=== PATIENT | male | born 2000 | race Caucasian/White ===

== ENCOUNTER 2021-09-28 14:00 | Emergency (ER) | payer MEDICAID, SELFPAY ==
[2021-09-28 14:23] VITALS: BP 123/70; PULSE 82; RESP 18; TEMP 36.8; O2SAT 99; BMI 32.1
--- NOTE | 2021-09-28 15:02 | PC.NURSE ---
Pt in own pants d/t inability to fit [facility] pants. Pants checked by security and other belongings secured
--- NOTE | 2021-09-28 15:11 | ED_ITS ---
HPI - Psych General Chief Complaint: Psychiatric Symptoms Stated Complaint: CRISIS,L FOREARM LACS PER EMS Time Seen by Provider: 09/28/21 14:30 Source: patient and EMS Mode of arrival: EMS Limitations: no limitations History of Present Illness HPI Narrative: Patient comes to the emergency room via EMS on a Section 12 by Shanta ADAME. Earlier today, patient was found by his girlfriend trying to slash his wrist. P atient sustained two small superficial lacerations to the left wrist, and 1 superficial cut to the midline of the neck. Patient states that he is not on any medications for anxiety or depression, states that he has been cutting himself since he was in middle school. Patient denies homicidal ideation. Patient states that he has never been formally diagnosed with either anxiety or depression. Related Data Allergies Allergy/AdvReac Type Severity Reaction Status Date / Time No Known Allergies Allergy Verified 09/28/21 14:32 Review of Systems Review of Systems: Constitutional : No Weight loss, No Fever, No Chills, No Night Sweats, No Fatigue, No Malaise ENT/Mouth : No Hearing loss, No Ear Pain, No Nasal Congestion, No Sinus Pain, No Hoarseness, No sore throat, No Rhinorrhea, No Swallowing Difficulty Eyes: No Eye Pain, No Swelling, No Redness, No Foreign Body, No Discharge, No Vision Changes Cardiovascular : No Chest Pain, No SOB, No Dyspnea on Exertion, No Orthopnea, No Edema, No Palpitations Respiratory : No Cough, No Sputum, No Wheezing, No Smoke Exposure, No Dyspnea Gastrointestinal : No Nausea, No Vomiting, No Diarrhea, No Constipation, No abdominal Pain, No Hematochezia, No Melena Genitourinary : no irregular bleeding, No Dysuria, No Urinary Frequency, No Hematuria, No Urinary Incontinence, No Urgency, No Flank Pain, No Urinary Flow Changes, No Hesitancy Musculoskeletal : No joint pain, No Myalgias, No Joint Swelling Skin : Complaining of superficial ulcerations to the left wrist and neck Neuro : No Weakness, No Numbness, No Paresthesias, No Loss of Consciousness, No Dizziness, No Headache Psych : Complaining of anxiety, depression, suicidal ideation, no homicidal ideation, denies using drugs Heme/Lymph: No Bruising, No Bleeding,No Lymphadenopathy Endocrine : No Polyuria, No Polydipsia, No Temperature Intolerance [facility] Past Medical History Medical History (Updated 09/28/21 @ 15:23 by Le Ayala MD) No known health problems Suicidal ideation Social History Social History Alcohol intake: current Alcohol intake frequency: a few times a week Patient Tobacco Use Status: Never used Tobacco Use of substances other than those prescribed or required for medical reasons: Yes Substance Use Type: Marijuana Physical Exam Vital Signs: Vital Signs: Last Vital Signs Temp 98.2 F 09/28/21 14:23 Pulse 82 09/28/21 14:23 Resp 18 09/28/21 14:23 BP 123/70 09/28/21 14:23 Pulse Ox 99 09/28/21 14:23 O2 Del Method 09/28/21 14:23 BMI result Body Mass Index 32.1 Const: Other: Appearance: Alert. Oriented X3. No acute distress. Eyes: Pupils equal, round and reactive to light. ENT: Pharynx normal. Neck: Normal inspection. Neck supple. No lymph nodes noted. No crepitus CVS: Normal heart rate and rhythm. Pulses normal. Normal S1 and S2 Respiratory: No respiratory distress. Breath sounds normal. No Wheezing. No rales Abdomen: Soft and nontender. No rigidity. No distention. Skin: Skin warm and dry. Two superficial lacerations to the left wrist and 1 to the next Extremities: No lower extremity edema. No Lacerations. No Rash Neuro: Oriented X 3. No motor deficit. No sensory deficit. Moving all extremities. No slurred speech. CN 2 through 12 grossly intact Psych: calm, cooperative, normal affect Course Course Course Narrative: Patient does not need any stitches. Patient has superficial lacerations were cleaned and Dermabond was applied, neck scratch is minor, cleaned, no further treatment needed. Patient is on a Section 12 which was started by police department from [place]. [facility] consult pending Physician observation started at 15:20 Discharge Plan Discharge Clinical Impression: Suicidal ideation Patient Disposition: Still a Patient
--- NOTE | 2021-09-28 15:35 | MHC.CARE ---
Call from N Intake, patient was evaluated in the community and per clinician was sent to the ED for medical clearance and N to gather collateral information. Will be seen for a mental status update and disposition later tonight or in the morning.
[2021-09-28] MEDS: Diphth,Pertus(ACell),Tet Adult 0.5 ML SYRINGE IM (15:56)
[2021-09-28 16:14] LABS: COVID-19 Test Negative (Negative); IDNOW Serial# 16C4AD1C
[2021-09-28 16:21] LABS: Appearance Urine CLEAR; Color Urine YELLOW; Glucose Urine UA NEG (NEG); Leukocyte Esterase Urine NEG (NEG); Nitrite Urine NEG (NEG); Urine Blood NEG (NEG); Urine Ketones NEG (NEG); Urine Protein NEG (NEG-TRACE)
[2021-09-28 16:33] LABS: Amphetamine Screen Urine Not Detected (Not Detect); Barbiturates, Urine Not Detected (Not Detect); Benzodiazepines Screen Urine Not Detected (Not Detect); Cannabinoid Screen Urine POSITIVE (Not Detect); Cocaine Screen Urine Not Detected (Not Detect); Fentanyl, urine Not Detected (Not Detect); Opiate Screen Urine Not Detected (Not Detect); Phencyclidine Screen Urine Not Detected (Not Detect)
[2021-09-29 03:27] VITALS: BP 153/103; PULSE 78; RESP 16; TEMP 36.1; O2SAT 99
--- NOTE | 2021-09-29 06:25 | PC.NURSE ---
Patient slept through the night, no distress observed/reported, patient currently not on any medication, behavior pleasant and non concerning, patient was assessed by [facility] in the community, placed on Section 12, due to lack of collateral input, disposition is pending, will continue to monitor.
--- NOTE | 2021-09-29 07:18 | PC.NURSE ---
patient appears to remain asleep at present respirations are even and unlabored patient appears in no distress
[2021-09-29 07:51] VITALS: BP 136/88; PULSE 74; RESP 16; TEMP 36.4; O2SAT 98
== END 2021-09-29 12:59 | disposition home or self-care (01) ==
PROVIDERS: Emergency Provider Emergency Medicine
DX: R45.851 Suicidal ideations (principal); S61.512A Laceration without foreign body of left wrist, initial encounter; S10.91XA Abrasion of unspecified part of neck, initial encounter; Z20.822 Contact with and (suspected) exposure to COVID-19; X78.9XXA Intentional self-harm by unspecified sharp object, initial encounter; Y93.9 Activity, unspecified; Y92.9 Unspecified place or not applicable; Y99.9 Unspecified external cause status
CPT/HCPCS: 80307; 81003; 87635; 90715; 99284